=== PATIENT | female | born 1985 | race African-American/Black ===

== ENCOUNTER 2020-08-29 09:03 | Emergency (ER) | payer OTHER ==
[~2020-08-29] VITALS: Ht 172.7 cm; Wt 63.4 kg
[2020-08-29 09:03] VITALS: BP 110/51
[2020-08-29] MEDS ORDERED: ERYT5OIN25 OS (09:44)
== END 2020-08-29 09:57 | disposition home or self-care (01) ==
LOC: M ED 09:03
DX: H10.32 Unspecified acute conjunctivitis, left eye (principal); G43.909 Migraine, unspecified, not intractable, without status migrainosus